=== PATIENT | female | born 1935 | race Caucasian/White ===

== ENCOUNTER 2019-10-16 09:32 | Inpatient (IN) ==
[2019-10-16] MEDS ORDERED: PIPERACILLIN/TAZOBACTAM 3,375 MG in SODIUM CHLORIDE 0.9% 100 ML IV STA (09:49)
[2019-10-16] MEDS ORDERED: ONDANSETRON 4 MG/2 ML VIAL IV STA (09:49)
[2019-10-16] MEDS ORDERED: SODIUM CHLORIDE 0.9% 1,000 ML IV STA (09:49)
[2019-10-16] MEDS ORDERED: ACETAMINOPHEN 325 MG TABLET PO PRN (10:25)
[2019-10-16] MEDS ORDERED: LACTATED RINGERS 1,000 ML IV SCH (10:30)
[2019-10-16 11:02] LABS: Basophils % 0.3 % (0.0-0.8); Eosinophils # 0.7 10*3/uL (0.0-0.87); Eosinophils % 5.7 % (0.00-10.9); Hematocrit 35.4 VOL% (35.7-47.0); Hemoglobin 11.8 GM/DL (12.0-16.0); Immature Granulocytes % 0.3 %; Immature Granulocytes Absolute 0.03 #; Lymphocytes # 3.1 10*3/uL (1.4-4.0); Lymphocytes % 27.2 % (21.3-54.2); Mean Corpuscular HGB Conc 33.3 GM/DL (32-36); Mean Corpuscular Volume 88.9 FL (87-102); Mean Platelet Volume 8.9 FL (9.6-12.0); Monocytes % 7.2 % (1.7-12.7); Neutrophils % 59.3 % (38.7-73.9); Platelet Count 287 T/CUMM (130-400); Red Blood Count 3.98 MC/CUMM (3.8-5.5); Red Cell Distribution Width 12.6 % (9.3-17.3); White Blood Count 11.5 T/CUMM (4-12)
[2019-10-16 11:12] LABS: PT Patient Result 11.1 SECS (9.8-11.9); Partial Thromboplastin Time 30.2 SECS (23.9-33.8)
[2019-10-16 11:29] LABS: Alanine Aminotransferase 20 U/L (13-56); Albumin 3.8 G/DL (3.4-5.0); Alkaline Phosphatase 54 U/L (45-117); Amylase 29 U/L (25-115); Aspartate Amino Transferase 15 U/L (0-37); Blood Urea Nitrogen 8 MG/DL (7-18); Calcium 9.4 MG/DL (8.5-10.1); Estimated Glom Filtration Rate 94 ML/MIN; Glucose 102 MG/DL (74-106); Osmolality,Calculated 254.1 MOS/KG (273-304); Total Protein 7.2 G/DL (6.4-8.3); Troponin I < 0.015 NG/ML (0.00-0.045)
[2019-10-16 11:43] LABS: Apearance,Urine CLEAR (Clear); Bilirubin,Urine Negative (Negative); Blood, Urine Negative (Negative); Glucose,Urine (UA) Negative (Negative); Ketones,Urine Negative (Negative); Nitrite,Urine Negative (Negative); Protein,Urine Negative; RBC,Urine 1 /HPF (0-4); Squamous Epithelial Cell,Urine Occasional /HPF (0-10); Urine Color Straw (Yellow); Urine Specific Gravity 1.024 (1.001-1.035); Urine Urobilinogen < 2.0 EU/DL (0.2-1.0); WBC,Urine <1 /HPF (0-6)
[2019-10-16] MEDS: ONDANSETRON 4 MG/2 ML VIAL IV PRN ×2 (13:16→20:34)
[2019-10-16] MEDS: MORPHINE 4 MG/1 ML VIAL IV PRN (13:17)
[2019-10-16] MEDS: PIPERACILLIN/TAZOBACTAM 3,375 MG in SODIUM CHLORIDE 0.9% 100 ML IV SCH ×2 (13:18→18:16)
[2019-10-16] MEDS: SODIUM CHLORIDE 0.9% 1,000 ML IV SCH (16:45)
[2019-10-16] MEDS: POTASSIUM CHLORIDE 20 MEQ TABLET PO PRN ×3 (18:15→22:12)
[2019-10-16] MEDS: ALBUTEROL/IPRATROPIUM 3 ML NEB RESP TX PRN (20:09)
[2019-10-16] MEDS ORDERED: MONTELUKAST 10 MG TABLET PO SCH (21:00)
[2019-10-16] MEDS: PANTOPRAZOLE 40 MG TABLET PO SCH (21:28)
[2019-10-16] MEDS: CHOLECALCIFEROL 5,000 UNIT TABLET PO SCH (21:29)
[2019-10-16] MEDS: DILTIAZEM CD 180 MG CAPSULE PO SCH (21:29)
[2019-10-17] MEDS: POTASSIUM CHLORIDE 20 MEQ TABLET PO PRN (00:08)
[2019-10-17] MEDS: PIPERACILLIN/TAZOBACTAM 3,375 MG in SODIUM CHLORIDE 0.9% 100 ML IV SCH ×3 (02:46→18:05)
[2019-10-17] MEDS: ALBUTEROL/IPRATROPIUM 3 ML NEB RESP TX PRN ×2 (05:08→09:37)
[2019-10-17] MEDS: ONDANSETRON 4 MG/2 ML VIAL IV PRN (06:21)
[2019-10-17 06:43] LABS: Basophils % 0.4 % (0.0-0.8); Eosinophils # 0.5 10*3/uL (0.0-0.87); Eosinophils % 6.8 % (0.00-10.9); Hematocrit 33.8 VOL% (35.7-47.0); Hemoglobin 11.1 GM/DL (12.0-16.0); Immature Granulocytes % 0.4 %; Immature Granulocytes Absolute 0.03 #; Lymphocytes # 2.4 10*3/uL (1.4-4.0); Lymphocytes % 33.1 % (21.3-54.2); Mean Corpuscular HGB Conc 32.8 GM/DL (32-36); Mean Corpuscular Volume 88.7 FL (87-102); Mean Platelet Volume 9.1 FL (9.6-12.0); Neutrophils % 52.3 % (38.7-73.9); Platelet Count 251 T/CUMM (130-400); Red Blood Count 3.81 MC/CUMM (3.8-5.5); Red Cell Distribution Width 12.8 % (9.3-17.3); White Blood Count 7.4 T/CUMM (4-12)
[2019-10-17 07:13] LABS: Calcium 9.1 MG/DL (8.5-10.1); Osmolality,Calculated 269.1 MOS/KG (273-304)
[2019-10-17] MEDS: ENOXAPARIN 30 MG/0.3 ML SYRINGE SUBCUT SCH (07:53)
[2019-10-17] MEDS: PROMETHAZINE 25 MG/1 ML VIAL IM PRN (08:30)
[2019-10-17] MEDS ORDERED: PANTOPRAZOLE 40 MG TABLET PO SCH (09:00)
[2019-10-17] MEDS: MORPHINE 4 MG/1 ML VIAL IV PRN ×2 (09:03→15:20)
[2019-10-17] MEDS: POLYETHYLENE GLYCOL POWDER 17 GM PACK PO SCH (09:04)
[2019-10-17] MEDS: PANTOPRAZOLE 40 MG TABLET PO SCH ×2 (09:05→21:14)
[2019-10-17] MEDS ORDERED: MAGNESIUM SULF RIDER 4 GM in PREMIX 1 EACH IV PRN (09:29)
[2019-10-17] MEDS ORDERED: MAGNESIUM SULF RIDER 2 GM in PREMIX 1 EACH IV PRN (09:29)
[2019-10-17] MEDS ORDERED: ALBUTEROL SULFATE INH PRN (09:30)
[2019-10-17] MEDS ORDERED: oxyCODONE ER 10 MG TABLET PO PRN (09:30)
[2019-10-17] MEDS ORDERED: CYANOCOBALAMIN 1000 MCG/1 ML VIAL IM SCH (09:30)
[2019-10-17] MEDS ORDERED: MAGNESIUM CITRATE 300 ML BOTTLE PO ONE (12:01)
[2019-10-17] MEDS ORDERED: BISACODYL 10 MG SUPP RECTAL ONE (12:01)
[2019-10-17] MEDS: MONTELUKAST 10 MG TABLET PO SCH (13:11)
[2019-10-17] MEDS: SODIUM CHLORIDE 0.9% 1,000 ML IV SCH ×2 (13:41→14:08)
[2019-10-17] MEDS: ALBUTEROL 0.63 MG/3 ML NEB RESP TX SCH ×2 (13:55→19:21)
[2019-10-17] MEDS: POTASSIUM CHLORIDE 10 MEQ TABLET PO SCH (18:05)
[2019-10-17] MEDS ORDERED: CHOLECALCIFEROL 5,000 UNIT TABLET PO SCH (21:00)
[2019-10-17] MEDS ORDERED: MONTELUKAST 10 MG TABLET PO SCH (21:00)
[2019-10-17] MEDS ORDERED: DILTIAZEM CD 180 MG CAPSULE PO SCH (21:00)
[2019-10-17] MEDS: DILTIAZEM CD 180 MG CAPSULE PO SCH (21:14)
[2019-10-17] MEDS: CHOLECALCIFEROL 5,000 UNIT TABLET PO SCH (21:15)
[2019-10-18] MEDS: ONDANSETRON 4 MG/2 ML VIAL IV PRN (01:31)
[2019-10-18] MEDS: MORPHINE 4 MG/1 ML VIAL IV PRN (01:34)
[2019-10-18] MEDS: PIPERACILLIN/TAZOBACTAM 3,375 MG in SODIUM CHLORIDE 0.9% 100 ML IV SCH (02:24)
[2019-10-18] MEDS: ALBUTEROL/IPRATROPIUM 3 ML NEB RESP TX PRN (02:52)
[2019-10-18] MEDS: ENOXAPARIN 30 MG/0.3 ML SYRINGE SUBCUT SCH (04:28)
[2019-10-18 06:11] LABS: Basophils % 0.4 % (0.0-0.8); Eosinophils # 0.9 10*3/uL (0.0-0.87); Eosinophils % 11.3 % (0.00-10.9); Hematocrit 32.5 VOL% (35.7-47.0); Hemoglobin 10.5 GM/DL (12.0-16.0); Immature Granulocytes % 0.2 %; Immature Granulocytes Absolute 0.02 #; Lymphocytes # 3.2 10*3/uL (1.4-4.0); Lymphocytes % 38.7 % (21.3-54.2); Mean Corpuscular HGB Conc 32.3 GM/DL (32-36); Mean Platelet Volume 9.3 FL (9.6-12.0); Monocytes % 8.2 % (1.7-12.7); Neutrophils % 41.2 % (38.7-73.9); Platelet Count 260 T/CUMM (130-400); Red Blood Count 3.57 MC/CUMM (3.8-5.5); Red Cell Distribution Width 12.9 % (9.3-17.3); White Blood Count 8.2 T/CUMM (4-12)
[2019-10-18] MEDS: SODIUM CHLORIDE 0.9% 1,000 ML IV SCH ×2 (06:18→10:39)
[2019-10-18 07:25] LABS: Calcium 8.9 MG/DL (8.5-10.1)
[2019-10-18 07:26] LABS: Osmolality,Calculated 272.7 MOS/KG (273-304)
[2019-10-18 07:43] LABS: Eosinophils 11 % (0-10); Hypochromasia 2+; Lymphocytes 34 % (20-55); Platelet Estimate Normal; Segmented Neutrophils 50 % (50-85); Total Cells Counted 100
[2019-10-18] MEDS: ALBUTEROL 0.63 MG/3 ML NEB RESP TX SCH (07:59)
[2019-10-18] MEDS ORDERED: LINACLOTIDE 145 MCG CAPSULE PO SCH (09:00)
[2019-10-18] MEDS ORDERED: FOLIC ACID 1 MG TABLET PO SCH (09:00)
[2019-10-18] MEDS ORDERED: LOSARTAN/HCTZ 50-12.5 MG TABLET PO SCH (09:00)
[2019-10-18] MEDS ORDERED: AMOXICILLIN/CLAV 875 MG TABLET PO SCH (09:00)
[2019-10-18] MEDS ORDERED: TIOTROPIUM OLODATEROL INH SCH (09:00)
[2019-10-18] MEDS ORDERED: FLUTICASONE 50 MCG NASAL SPRAY 16 GM BOTTLE BOTH NARES SCH (09:00)
[2019-10-18] MEDS: POTASSIUM CHLORIDE 10 MEQ TABLET PO SCH (09:26)
[2019-10-18] MEDS: PANTOPRAZOLE 40 MG TABLET PO SCH (09:26)
[2019-10-18] MEDS: POLYETHYLENE GLYCOL POWDER 17 GM PACK PO SCH (09:26)
[2019-10-18] MEDS ORDERED: SODIUM PHOSPHATE ENEMA 133 ML BOTTLE RECTAL ONE (11:03)
[2019-10-18 11:41] VITALS: BP 146/74
[2019-10-18] MEDS: MONTELUKAST 10 MG TABLET PO SCH (12:36)
[2019-10-18] MEDS: PROMETHAZINE 25 MG/1 ML VIAL IM PRN (12:44)
== END 2019-10-18 15:13 | disposition home or self-care (01) | DRG 391 ==
LOC: N.ED 09:32 → N.EDINP 10:25 → N.3E 10:58
PROVIDERS: ADMIT Surgery; ATTEND Surgery